=== PATIENT | male | born 1970 | race Caucasian/White ===

== ENCOUNTER 2022-04-26 07:55 | Outpatient (CLI) | payer BC, SELFPAY ==
[2022-04-27 16:50] LABS: Albumin* 4.3 g/dL (3.3-5.0); Chloride* 108 mmol/L (96-114)
[2022-04-27 16:51] LABS: Potassium* 4.1 mmol/L (3.6-5.1); Sodium* 139 mmol/L (135-149)
[2022-04-27 16:53] LABS: Alanine Aminotransferase* 56 U/L (4-50); Alkaline Phosphatase* 49 U/L (40-150); Aspartate Amino Transferase* 39 U/L (12-35); Bilirubin Total* 0.7 mg/dL (0.1-1.5); Blood Urea Nitrogen* 18 mg/dL (7-30); Carbon Dioxide* 24 mmol/L (20-32); Creatinine* 1.1 mg/dL (0.5-1.5); Estimated Glomerular Filt Rate 82 ml/min; Glucose* 109 mg/dL (60-115); Total Protein* 6.9 g/dL (6.0-8.3)
== END 2022-04-26 07:56 | disposition home or self-care (01) ==
PROVIDERS: Visit Provider Physician Assistant Medical
DX: I10 Essential (primary) hypertension (principal)
CPT/HCPCS: 80053; 84443

== ENCOUNTER 2023-11-29 08:30 | Outpatient (CLI) | payer BC, SELFPAY | END 2023-11-29 08:31 | disposition home or self-care (01) | LOC: NFLDREF 12-02 18:48 | PROVIDERS: PCP Physician Assistant Medical; Referring Provider Physician Assistant Medical; Visit Provider Physician Assistant Medical | DX: R79.89 Other specified abnormal findings of blood chemistry (principal); I10 Essential (primary) hypertension | CPT/HCPCS: 80053; 80061; 84443 ==

== ENCOUNTER 2023-12-04 08:30 | Outpatient (CLI) | payer BC, SELFPAY | END 2023-12-04 08:31 | disposition home or self-care (01) | LOC: NFLDREF 12-07 06:07 | PROVIDERS: PCP Physician Assistant Medical; Referring Provider Physician Assistant Medical; Visit Provider Physician Assistant Medical | DX: Z00.00 Encounter for general adult medical examination without abnormal findings (principal); R79.89 Other specified abnormal findings of blood chemistry; I10 Essential (primary) hypertension; F41.9 Anxiety disorder, unspecified; E66.9 Obesity, unspecified; E78.5 Hyperlipidemia, unspecified | CPT/HCPCS: 80074 ==

== ENCOUNTER 2023-12-07 07:42 | Outpatient (CLI) | payer BC, SELFPAY ==
--- NOTE | 2023-12-07 08:15 | CRLHL7_ITS ---
For Patients: As a result of the Century Cures Act, medical imaging exams and procedure reports are released immediately into your electronic medical record. You may view this report before your referring provider. If you have questions, please contact your health care provider. INDICATION: Elevated LFTs COMPARISON: none TECHNIQUE: Real time douglas scale imaging and color Doppler analysis was performed of the right upper quadrant. FINDINGS: The visualized liver measures 17.3 cm and has diffusely increased echotexture. No intrahepatic mass. There is a normal appearance of the hepatic IVC and proximal abdominal aorta. There is no evidence of ascites. The gallbladder is of normal size and there is no evidence of intraluminal stones or sludge. The gallbladder wall measures 2.3 mm in thickness. The common bile duct is of normal size and measures 5.9 mm in diameter at the level of the patsy hepatis. The pancreas is not visualized. There is no evidence of a stone or hydronephrosis within the right kidney. The right kidney measures 11.6 cm in length. IMPRESSION: Diffuse hepatic steatosis. Normal gallbladder. Dictated by Guillermo Andrade MD @ 12/09/2023 10:10:38 PM (Electronically Signed)
== END 2023-12-07 07:43 | disposition home or self-care (01) ==
LOC: US 07:42
PROVIDERS: PCP Physician Assistant Medical; Visit Provider Physician Assistant Medical
DX: R79.89 Other specified abnormal findings of blood chemistry (principal); K76.0 Fatty (change of) liver, not elsewhere classified
CPT/HCPCS: 76705

== ENCOUNTER 2023-12-20 08:03 | Outpatient (CLI) | payer BC, SELFPAY ==
--- NOTE | 2023-12-20 09:40 | W.ANESCHARGE ---
Anesthesia Charges Start Date/Time Anesthesia Start Date: 12/20/23 Anesthesia Start Time: 09:10 Stop Date/Time Anesthesia Stop Date: 12/20/23 Anesthesia Stop Time: 09:40
== END 2023-12-20 08:04 | disposition home or self-care (01) ==
LOC: OP CLINIC 08:04
PROVIDERS: PCP Physician Assistant Medical; Visit Provider Internal Medicine
DX: Z12.11 Encounter for screening for malignant neoplasm of colon (principal); K64.8 Other hemorrhoids; K57.30 Diverticulosis of large intestine without perforation or abscess without bleeding
CPT/HCPCS: 00812; 45378; J2704

== ENCOUNTER 2024-01-07 08:30 | Outpatient (RCR) | payer BC, SELFPAY | END 2024-04-09 14:59 | disposition home or self-care (01) | PROVIDERS: PCP Physician Assistant Medical; Visit Provider Orthopaedic Surgery Sports Medicine | DX: M75.02 Adhesive capsulitis of left shoulder (principal); M25.512 Pain in left shoulder; M25.612 Stiffness of left shoulder, not elsewhere classified; Z51.89 Encounter for other specified aftercare | CPT/HCPCS: 97032; 97110; 97140; 97161 ==

== ENCOUNTER 2024-12-29 08:00 | Outpatient (CLI) | payer BC, SELFPAY | END 2024-12-29 08:01 | disposition home or self-care (01) | LOC: NFLDREF 12-30 17:56 | PROVIDERS: PCP Physician Assistant Medical; Referring Provider Physician Assistant Medical; Visit Provider Physician Assistant Medical | DX: I10 Essential (primary) hypertension (principal); E78.2 Mixed hyperlipidemia; Z12.5 Encounter for screening for malignant neoplasm of prostate | CPT/HCPCS: 80053; 80061; 84443; G0103 ==